=== PATIENT | female | born 1955 | race African-American/Black ===

== ENCOUNTER → 2017-01-04 | Outpatient (CLI) | payer OTHER ==
[~2017-01-04] MED LIST: AMARYL 2MG T2 MG/TAB PO; ASPIRIN 81M81 MG/TA2 PO; ASPIRIN E.C. 8181 MG PO; AZO-CRANBERRY450 MG PO; CIPRO 500MG TA500 MG PO; CRANBERRY1 CAP PO; FLAGYL500 MG PO; GLUCOPHAGE1000 MG PO; HYZAAR 50-12.1 UDTAB PO; LEVEMIR FLEXPEN SC; LEVEMIR100 U/ML SQ; NORCO 325 MG-51 TAB PO; NOVOLOG 100U100 U/M1 SQ; VASERETIC PO; ZOCOR 80MG80 MG PO; ZOFRAN 4MG T4 MG/TAB PO
== END ==
LOC: SUN.DIA 08:45
DX: E11.65 Type 2 diabetes mellitus with hyperglycemia (principal); E11.42 Type 2 diabetes mellitus with diabetic polyneuropathy; E66.9 Obesity, unspecified; Z68.33 Body mass index [BMI] 33.0-33.9, adult; Z71.3 Dietary counseling and surveillance; E78.5 Hyperlipidemia, unspecified; I10 Essential (primary) hypertension; F17.210 Nicotine dependence, cigarettes, uncomplicated

== ENCOUNTER → 2017-02-08 | Outpatient (CLI) | payer OTHER | LOC: SUN.DIA 09:21 | DX: E11.65 Type 2 diabetes mellitus with hyperglycemia (principal); E11.42 Type 2 diabetes mellitus with diabetic polyneuropathy; E66.9 Obesity, unspecified; Z68.33 Body mass index [BMI] 33.0-33.9, adult; Z71.3 Dietary counseling and surveillance; E78.5 Hyperlipidemia, unspecified; I10 Essential (primary) hypertension | CPT/HCPCS: G0108 ==

== ENCOUNTER → 2017-07-12 | Outpatient (CLI) | payer OTHER | LOC: SUN.DIA 04-05 09:53 | DX: E11.40 Type 2 diabetes mellitus with diabetic neuropathy, unspecified (principal); Z79.4 Long term (current) use of insulin; E78.5 Hyperlipidemia, unspecified; I10 Essential (primary) hypertension; E66.9 Obesity, unspecified; Z68.32 Body mass index [BMI] 32.0-32.9, adult; Z71.3 Dietary counseling and surveillance; F17.210 Nicotine dependence, cigarettes, uncomplicated | CPT/HCPCS: G0108 ==

== ENCOUNTER → 2017-08-30 | Outpatient (CLI) | payer OTHER ==
[2017-08-30 09:02] LABS: HEMATOCRIT 40.7 % (37.0-47.0); HEMOGLOBIN 13.6 g/dl (12.5-16.0); MEAN CELL VOLUME 86 fl (80.0-100.0); MEAN CORPUSCULAR HEMOGLOBIN 29 pg (27.0-31.0); MEAN CORPUSCULAR HGB CONC 33 g/dl (33.0-37.0); MEAN PLATELET VOLUME 9.2 fl (7.4-10.4); PLATELET COUNT 337 K/mm3 (130-400); RED BLOOD COUNT 4.76 M/mm3 (4.10-5.30); REDCELL DISTRIBUTION WIDTH-CV 12.7 % (11.5-14.5)
[2017-08-30 09:13] LABS: ALBUMIN 4.6 gm/dL (3.5-5.0); BILIRUBIN,TOTAL 0.6 mg/dL (0.0-1.0); CALCIUM 10.6 mg/dL (8.4-10.2); CHOLESTEROL RISK RATIO 4.2; CREATININE, serum 0.74 mg/dL (0.52-1.25); POTASSIUM 4.2 mmol/L (3.4-5.0); TOTAL PROTEIN 7.2 gm/dL (6.4-8.2)
[2017-08-30 09:42] LABS: THYROID STIMULATING HORMONE 1.45 uIU/mL (0.465-4.680)
== END ==
LOC: COL.LAB 07:53
PROVIDERS: Internal Medicine
DX: I10 Essential (primary) hypertension (principal); E11.9 Type 2 diabetes mellitus without complications

== ENCOUNTER 2017-09-11 15:48 | Emergency (ER) | payer OTHER ==
[~2017-09-11] VITALS: Ht 160 cm; Wt 82.3 kg
[2017-09-11 15:51] VITALS: BP 126/58
[2017-09-11 16:19] LABS: INFLUENZA A NEGATIVE; INFLUENZA B NEGATIVE
[2017-09-11 17:54] VITALS: PULSE 84; TEMP 99
== END 2017-09-11 17:55 | disposition home or self-care (01) ==
LOC: COL.ER 15:48
PROVIDERS: Nurse Practitioner
DX: J11.1 Influenza due to unidentified influenza virus with other respiratory manifestations (principal); E11.9 Type 2 diabetes mellitus without complications; I10 Essential (primary) hypertension; F17.210 Nicotine dependence, cigarettes, uncomplicated; Z90.49 Acquired absence of other specified parts of digestive tract; Z98.51 Tubal ligation status; Z79.4 Long term (current) use of insulin; Z79.82 Long term (current) use of aspirin

== ENCOUNTER → 2018-01-09 | Outpatient (CLI) | payer MEDICAID | LOC: SUN.DIA 11:21 | DX: E11.40 Type 2 diabetes mellitus with diabetic neuropathy, unspecified (principal); Z79.4 Long term (current) use of insulin; E78.5 Hyperlipidemia, unspecified; I10 Essential (primary) hypertension; E66.9 Obesity, unspecified; Z68.33 Body mass index [BMI] 33.0-33.9, adult; Z71.3 Dietary counseling and surveillance; F17.210 Nicotine dependence, cigarettes, uncomplicated | CPT/HCPCS: G0108 ==

== ENCOUNTER → 2018-02-22 | Outpatient (CLI) | payer OTHER | LOC: MC.RAD 14:16 | DX: Z12.31 Encounter for screening mammogram for malignant neoplasm of breast (principal); Z41.1 Encounter for cosmetic surgery ==

== ENCOUNTER → 2018-08-01 | Outpatient (CLI) | payer MEDICARE, MEDICAID | LOC: SUN.DIA 10:55 | DX: E11.40 Type 2 diabetes mellitus with diabetic neuropathy, unspecified (principal); E78.5 Hyperlipidemia, unspecified; I10 Essential (primary) hypertension; Z79.4 Long term (current) use of insulin; E66.9 Obesity, unspecified; F17.210 Nicotine dependence, cigarettes, uncomplicated | CPT/HCPCS: G0108 ==

== ENCOUNTER → 2019-07-03 | Outpatient (CLI) | payer MEDICARE | LOC: MC.RAD 09:27 | DX: Z12.31 Encounter for screening mammogram for malignant neoplasm of breast (principal); Z98.890 Other specified postprocedural states ==

== ENCOUNTER 2020-06-03 07:04 | Day surgery (SDC) | payer MEDICARE ==
[~2020-06-03] VITALS: Ht 160 cm; Wt 81.8 kg
[2020-06-03 07:42] VITALS: BP 124/70; PULSE 89; TEMP 96.7
[2020-06-03] MEDS ORDERED: TRULICITY0.75 MG/0. SQ (07:58)
[2020-06-03] MEDS ORDERED: LEVEMIR100 U/ML SQ (07:59)
[2020-06-03] MEDS ORDERED: VASERETIC PO (07:59)
[2020-06-03] MEDS ORDERED: ZOCOR 40MG40 MG PO (08:00)
[2020-06-03] MEDS ORDERED: VITAMIN D31000 I1 PO (08:01)
[2020-06-03] MEDS ORDERED: BENTYL 10MG10 MG/CAP PO (09:04)
[2020-06-03 09:05] VITALS: BP 126/75; PULSE 77
[2020-06-03 09:20] VITALS: BP 124/69; PULSE 76
[2020-06-03 09:35] VITALS: BP 122/67; PULSE 72
== END 2020-06-03 09:53 | disposition home or self-care (01) ==
LOC: SDCO 07:04
DX: D12.2 Benign neoplasm of ascending colon (principal); D12.5 Benign neoplasm of sigmoid colon; K64.0 First degree hemorrhoids; Z80.0 Family history of malignant neoplasm of digestive organs; R19.7 Diarrhea, unspecified; E11.9 Type 2 diabetes mellitus without complications; I10 Essential (primary) hypertension; E78.5 Hyperlipidemia, unspecified; Z79.4 Long term (current) use of insulin; Z79.82 Long term (current) use of aspirin; F17.210 Nicotine dependence, cigarettes, uncomplicated; G47.33 Obstructive sleep apnea (adult) (pediatric); Z88.0 Allergy status to penicillin; Z88.2 Allergy status to sulfonamides; Z91.040 Latex allergy status; Z20.828 Contact with and (suspected) exposure to other viral communicable diseases
CPT/HCPCS: J2704; J7030

== ENCOUNTER → 2020-06-04 | Outpatient (CLI) | payer MEDICARE ==
[~2020-06-04] MED LIST changes: +BENTYL 10MG10 MG/CAP PO; +TRULICITY0.75 MG/0. SQ; +VITAMIN D31000 I1 PO; +ZOCOR 40MG40 MG PO
== END ==
LOC: COL.RAD 12:43
DX: N13.5 Crossing vessel and stricture of ureter without hydronephrosis (principal)
CPT/HCPCS: A9562; J1940

== ENCOUNTER → 2020-07-23 | Outpatient (CLI) | payer MEDICARE | LOC: MC.RAD 07-04 08:45 | DX: Z12.31 Encounter for screening mammogram for malignant neoplasm of breast (principal) ==

== ENCOUNTER → 2021-02-24 | Outpatient (CLI) | payer MEDICARE, MEDICAID | LOC: MHCPAIN 08:23 | DX: M47.817 Spondylosis without myelopathy or radiculopathy, lumbosacral region (principal); M54.16 Radiculopathy, lumbar region; M53.3 Sacrococcygeal disorders, not elsewhere classified; G89.29 Other chronic pain | CPT/HCPCS: G0463 ==

== ENCOUNTER 2021-04-03 15:10 | Outpatient (RCR) | payer MEDICARE, MEDICAID | END 2021-07-02 | disposition still patient (30) | LOC: MKS.ESL.OT | DX: M54.40 Lumbago with sciatica, unspecified side (principal); R26.9 Unspecified abnormalities of gait and mobility; R53.1 Weakness ==

== ENCOUNTER → 2021-10-07 | Outpatient (CLI) | payer MEDICARE, MEDICAID | LOC: MC.RAD 09:12 | DX: Z12.31 Encounter for screening mammogram for malignant neoplasm of breast (principal) ==

== ENCOUNTER 2021-11-16 10:33 | Emergency (ER) | payer MEDICARE, MEDICAID ==
[~2021-11-16] VITALS: Ht 160 cm; Wt 77.7 kg
[2021-11-16 10:36] VITALS: TEMP 98.6
[2021-11-16 11:09] LABS: BASO % 0.2 % (0.0-2.0); EOS # 0.2 K/mm3 (0.0-0.7); EOS % 1.9 % (0.0-4.0); GRAN # 9.2 K/mm3 (1.4-6.5); GRAN % 85.8 % (42.2-75.2); HEMATOCRIT 38.7 % (37.0-47.0); LYMPH # 0.7 K/mm3 (1.2-3.4); LYMPH % 6.9 % (20.0-51.0); MEAN CELL VOLUME 84 fl (80.0-100.0); MEAN CORPUSCULAR HEMOGLOBIN 28 pg (27-31); MEAN CORPUSCULAR HGB CONC 34 g/dl (33.0-37.0); MEAN PLATELET VOLUME 9.4 fl (7.4-10.4); MONO # 0.5 K/mm3 (0.1-0.6); MONO % 4.8 % (1.7-9.3); PLATELET COUNT 333 K/mm3 (130-400); RED BLOOD COUNT 4.63 M/mm3 (4.10-5.30); REDCELL DISTRIBUTION WIDTH-CV 12.6 % (11.5-14.5)
[2021-11-16 11:13] LABS: INR 1.1 (0.8-3.0); PROTHROMBIN TIME 11.7 SECONDS (9.7-12.8)
[2021-11-16 11:24] LABS: ALBUMIN 4.4 gm/dL (3.4-4.8); BILIRUBIN,TOTAL 0.6 mg/dL (0.2-1.2); C-REACTIVE PROTEIN 0.18 mg/dL (0.00-0.50); CREATININE, serum 0.97 mg/dL (0.57-1.11); POTASSIUM 3.9 mmol/L (3.5-4.5); TOTAL PROTEIN 7.1 gm/dL (6.2-8.1)
[2021-11-16 11:31] LABS: TROPONIN-I 0.01 ng/mL (0.00-0.033)
[2021-11-16 12:29] VITALS: BP 141/65; PULSE 101
[2021-11-16] MEDS ORDERED: ZOFRAN ODT4 MG PO (12:31)
== END 2021-11-16 12:55 | disposition home or self-care (01) ==
LOC: COL.ER 10:33
PROVIDERS: Physician Assistant
DX: R11.2 Nausea with vomiting, unspecified (principal); R19.7 Diarrhea, unspecified; Z87.891 Personal history of nicotine dependence; Z91.040 Latex allergy status; Z79.82 Long term (current) use of aspirin
CPT/HCPCS: C9113; J2405

== ENCOUNTER 2022-03-09 08:15 | Day surgery (SDC) | payer MEDICARE, MEDICAID ==
[~2022-03-09] VITALS: Ht 160 cm; Wt 86.6 kg
[~2022-03-09 08:15] MED LIST changes: +ZOFRAN ODT4 MG PO
[2022-03-09 08:43] VITALS: BP 160/87; PULSE 80; TEMP 97.1
[2022-03-09] MEDS ORDERED: TRULICITY1.5 MG/0.5 SQ (09:17)
--- NOTE | 2022-03-09 09:36 | NUR ---
0832 ADMITTED TO ROOM 5. PATIENT USES CANE FOR AMBULATION. ALERT ORIENTED. REPORTS STOOLS ARE CLEAR, LIGHT YELLOW. DAUGHTER ACCOMPANIED PATIENT TO FACILITY. PHONE AND WALLET GIVEN TO DAUGHTER BY PATIENT PRIOR TO COMING TO ADMISSION AREA.
[2022-03-09] MEDS ORDERED: QUESTRAN4 GM/9 GM PO (10:40)
[2022-03-09 10:50] VITALS: BP 143/90; PULSE 91; TEMP 97.3
--- NOTE | 2022-03-09 10:50 | NUR ---
PATIENT RETURNS TO ROOM 5 VIA CART. ASSIST X 2 TO CHAIR. DAUGHTER AND DOCTOR AT BEDSIDE. VITAL SIGNS WNL. SHE REQUESTS TOAST AND COFFEE. WILL CONTINUE TO MONITOR.
[2022-03-09 11:05] VITALS: BP 143/93; PULSE 87
--- NOTE | 2022-03-09 11:05 | NUR ---
PATIENT IS ALERT AND ORIENTED. SHE IS TOLERATING THE TOAST AND COFFEE WELL. IV REMOVED. DAUGHTER AT BEDSIDE. VITAL SIGNS WNL. DENIES ANY PAIN OR NAUSEA. WILL CONTINUE TO MONITOR.
[2022-03-09 11:20] VITALS: BP 147/95; PULSE 85
--- NOTE | 2022-03-09 11:20 | NUR ---
PATIENT IS READY FOR DISCHARGE. VITAL SIGNS WNL. DISCHARGE INSTRUCTIONS REVIEWED WITH PATIENT AND DAUGHTER. SHE IS GETTING DRESSED AND THEN I WILL TAKE HER DOWNSTAIRS IN A WHEELCHAIR.
== END 2022-03-09 11:35 | disposition home or self-care (01) ==
LOC: SDCO 08:15
DX: Z12.11 Encounter for screening for malignant neoplasm of colon (principal); D12.2 Benign neoplasm of ascending colon; D12.4 Benign neoplasm of descending colon; D12.5 Benign neoplasm of sigmoid colon; K29.50 Unspecified chronic gastritis without bleeding; K21.00 Gastro-esophageal reflux disease with esophagitis, without bleeding; K57.30 Diverticulosis of large intestine without perforation or abscess without bleeding; K64.0 First degree hemorrhoids; F17.210 Nicotine dependence, cigarettes, uncomplicated
CPT/HCPCS: J2704; J7030

== ENCOUNTER → 2022-10-19 | Outpatient (CLI) | payer MEDICARE, MEDICAID ==
[~2022-10-19] MED LIST changes: +QUESTRAN4 GM/9 GM PO; +TRULICITY1.5 MG/0.5 SQ
== END ==
LOC: MC.RAD 12:39
DX: N63.10 Unspecified lump in the right breast, unspecified quadrant (principal)

== ENCOUNTER → 2022-10-26 | Outpatient (CLI) | payer MEDICARE, MEDICAID | LOC: MC.RAD 07:44 | DX: Z12.31 Encounter for screening mammogram for malignant neoplasm of breast (principal); Z87.898 Personal history of other specified conditions ==